=== PATIENT | female | born 2000 | race Hispanic/Latino ===

== ENCOUNTER 2020-01-09 15:50 | Emergency (ER) | payer BC ==
[~2020-01-09] VITALS: Ht 154.9 cm; Wt 58.5 kg
[2020-01-09] MEDS ORDERED: KETOROLAC TROMETHAMINE 60 MG/2 ML VIAL IM ONE (16:00)
--- NOTE | 2020-01-09 16:25 | Emergency Department Note ---
History of Present Illnes History of Present Illness Chief Complaint: Genitourinary History of Present Illness This is a 19 year old female lower back ache today. dx uti yesterday. started cipro today. lmp 12/24. . aaox4. ambulatory. no fevers. Seen yesterday at [facility] and was told if she started having back pain to call them - she called and was told since it was 3 o'clock on Sunday they could not see her and told her to go to ER Historian: Patient Arrival Mode: Car General Office Assistant Required: No Onset (how long ago): day(s) (3 days of dysuria, today had back pain) Location: bilateral lower back Quality: aching Radiation: Reports non-radiation Severity: mild Onset quality: gradual Timing of current episode: constant Progression: unchanged Chronicity: new Context: Denies recent illness Relieving factors: none Exacerbating factors: none Associated symptoms: Reports denies other symptoms; Denies nausea/vomiting Past Medical/Family History Physician Review I have reviewed the patient's past medical and family history. Any updates have been documented here. Past Medical History Recent Fever: No Clinical Suspicion of Infectio: No New/Unexplained Change in Ment: No Past Medical History: None Past Surgical History: None Other Surgery: rt elbow Social History Smoking Cessation: Never Smoker Counseling Performed: No Alcohol Use: None Any Illegal Drug Use: No TB Exposure/Symptoms: No Physically hurt or threatened: No Family History Family history of heart diseas: No Other Any Pre-Existing Lines (PICC,: No Review of Systems Review of Systems Constitutional: Reports no symptoms EENTM: Reports no symptoms Cardiovascular: Reports no symptoms Respiratory: Reports no symptoms Gastrointestinal: Reports no symptoms Genitourinary: Reports dysuria Musculoskeletal: Reports back pain Integumentary: Reports no symptoms Neurological: Reports no symptoms Psychological: Reports no symptoms Endocrine: Reports no symptoms Hematological/Lymphatic: Reports no symptoms Physical Exam Related Data Allergies: Coded Allergies: valacyclovir (Verified Allergy, Unknown, 01/09/20) Triage Vital Signs Vital Signs Date Time Temp Pulse Resp B/P (MAP) Pulse Ox O2 Delivery O2 Flow Rate FiO2 01/09/20 15:52 97.3 95 14 126/81 100 Room Air Vital signs reviewed: Yes Physical Exam CONSTITUTIONAL Constitutional: Present well-developed, Present well-nourished HENT HENT: Present normocephalic, Present atraumatic, Present oropharynx clear/moist, Present nose normal HENT L/R: Present left ext ear normal, Present right ext ear normal EYES Eyes: Reports PERRL, Reports conjunctivae normal NECK Neck: Present ROM normal PULMONARY Pulmonary: Present effort normal, Present breath sounds normal CARDIOVASCULAR Cardiovascular: Present regular rhythm, Present heart sounds normal, Present capillary refill normal, Present normal rate GASTROINTESTINAL Abdominal: Present soft, Present nontender, Present bowel sounds normal; Absent distension, Absent tender, Absent left CVA tenderness, Absent right CVA tenderness GENITOURINARY Genitourinary: Present exam deferred SKIN Skin: Present warm, Present dry MUSCULOSKELETAL Musculoskeletal: Present ROM normal NEUROLOGICAL Neurological: Present alert, Present oriented x 3, Present no gross motor or sensory deficits PSYCHOLOGICAL Psychological: Present mood/affect normal, Present judgement normal Assessment & Plan Medical Decision Making MDM pt appears well, mild bilateral lower back pain, no abd tenderness and no CVAT. She reports that UA and cx was done yesterday at [facility]. She does not have pain typical of kidney stone and unlikely to be pyelonephritis since pain is bilateral and she has no CVAT. Even if pyelonephritis, she has no N/V and was prescribed appropriate 10 days of abx's. Will give IM dose of Toradol and DC home, advised to finish entire course of Cipro and F/U with PCP for cx/sens results, and return to ED for any worsening of sx's Reassessment Reassessment DC Home, Take full course of Cipro, F/U PCP, RTED prn sx's worsen Assessment & Plan Final Impression: (1) UTI (urinary tract infection) Depart Disposition: HOME, SELF-CARE Last Vital Signs Date Time Temp Pulse Resp B/P (MAP) Pulse Ox O2 Delivery O2 Flow Rate FiO2 01/09/20 15:52 97.3 95 14 126/81 100 Room Air Medications in the ED Ketorolac Tromethamine 60 mg ONCE ONCE IM ; Start 01/09/20 at 16:00; Stop 01/09/20 at 16:02; Status DC SHANA FORD MD Jan 09, 2020 16:25
--- OUTSIDE RECORDS SUMMARY | 2020-01-09 17:07 | XMS REPORT | Continuity of Care Document ---
Author Author [facility] t Organization [facility] Address [address] [place] [address] Phone Unavailable Care Team Providers Care Rock Picker Name Role Phone DO NEAL SHAH PCP Soraida FORD Attphyabran Unavailable Payers Payer Name Policy Type Policy Number Effective Date Expiration Date S [place] [employer] Ppo [id number] [facility] Problems Condition Name Condition Details Condition Category Status Onset Date Resolution Date Last Treatment Date Treating Clinician Comments Source Bronchitis Problem Active [facility] Allergies, Adverse Reactions, Alerts This patient has no known allergies or adverse reactions. Social History Social Habit Start Date Stop Date Quantity Comments Source Sex Assigned At 2000 00:00:00 2000 00:00:00 Female [facility] Medications This patient has no known medications. Vital Signs Vital Name Observation Time Observation Value Comments Source Weight 2019-09-21 11:12:00 140 [lb_av] [facility] BMI (Body Mass Index) 2019-09-21 11:12:00 22.6 kg/m2 [facility] Procedures This patient has no known procedures. Plan of Care Planned Activity Planned Date Details Comments Source Instructions Bronchitis (Acute) - Adult C [facility] Encounters Start Date/Time End Date/Time Encounter Type Admission Type Att[facility] Care Department Encounter ID Source 2019-09-21 10:44:00 2019-09-21 14:48:00 Departed Emergency Room 1 SHANA FORD [facility] [id number] [facility] Results Test Description Test Time Test Comments Results Result Comments Source CHEST SINGLE (PORTABLE) 2019-09-21 13:31:00 [facility] [address] [address] Patient Name: MADELEINE SANCHEZ MR #: [id number] : 2000 Age/Sex: 19/F Req #: [id number] Adm Physician: Ordered by: SHANA FORD MD Report #: [id number] Location: ER Room/Bed: Procedure: [id number] DX/CHEST SINGLE (PORTABLE) Exam Date: 09/21/19 Exam Time: 1252 REPORT STATUS: Signed EXAMINATION: CHEST SINGLE (PORTABLE) INDICATION: COUGH, EXPOSED TO COVID COMPARISON: None FINDINGS: TUBES and LINES: None. LUNGS: Lungs are well inflated. Lungs are clear. There is no evidence of pneumonia or pulmonary edema. PLEURA: No pleural effusion or pneumothorax. HEART AND MEDIASTINUM: The cardiomediastinal silhouette is unremarkable. BONES AND SOFT TISSUES: No acute osseous lesion. Soft tissues are unremarkable. UPPER ABDOMEN: No free air under the diaphragm. IMPRESSION: No acute thoracic abnormality. Signed by: Dr. Cristy Holcomb M.D. on 09/21/2019 1:32 PM Dictated By: ADWOA HOLCOMB MD, MD 31 Transcribed By: YULY on 09/21/191331 COPY TO: SHANA FORD MD
== END 2020-01-09 15:58 | disposition home or self-care (01) ==
LOC: ER 15:57
DX: N39.0 Urinary tract infection, site not specified (principal); M54.5 Low back pain
CPT/HCPCS: 99282; J1885